=== PATIENT | female | born 1935 | race Caucasian/White ===

== ENCOUNTER 2016-04-28 17:00 | Observation (INO) | payer MEDICARE, OTHER ==
[~2016-04-28] VITALS: Ht 167.6 cm; Wt 60.2 kg
[~2016-04-28 17:00] MED LIST: ANTIVERT 25MG25 MG PO; ASPIRIN 32325 MG/TAB PO; ASPIRIN 81M81 MG/TA2 PO; ASPIRIN E.C. 8181 MG PO; ATENOLOL50 MG PO; ATIVAN 0.50.5 MG/TAB PO; BENADRYL25 M2 PO; BILBERRY EXTRAC80 MG PO; CALCIUM + D 6001 TA1 PO; CATAPRES 0.1MG0.1 MG PO; CELEBREX 200MG200 MG PO; COLACE 100100 MG/CAP PO; CRESTOR 10MG10 MG PO; CRESTOR40 MG PO; FOLIC ACID 40400 MCG PO; GLUCOPHAGE850 MG/TA1 PO; GLUCOPHAGE850 MG/TAB PO; GLUCOSAMINE500 M2 PO; IMDUR 60MG60 MG/TAB PO; IRON325 M1 PO; LANTUS100 U/ML SC; LIPITOR 40MG TA40 MG PO; LISINOPRIL10 MG PO; LIVALO2 MG PO; LOPRESSOR 550 MG/TAB PO; LORTAB 5/500 501 TAB PO; LOVENOX 3030 MG/0.3 SQ; LOW DOSE ASPIRI81 MG PO; LUTEIN20 MG PO; MECLIZINE25 MG PO; METAMUCIL1 PDR PO; NAPROSYN500 MG PO; NEVANAC 3 ML3 ML OD; NEVANAC 3 ML3 ML OU; NITROSTAT0.4 MG/TAB SL; NORCO 325 MG-51 TAB PO; NOVOLOG 100U100 U/M1 SC; PHENERGAN 25 TA25 MG PO; PLAVIX 75MG TAB75 MG PO; PRINIVIL10 MG PO; SENOKOT8.6 MG PO; SENORMIN50 MG PO; TENORMIN 2525 MG/TAB PO; THERAGRAN1 TA1 PO; TOPROL XL 25MG25 MG PO; TOPROL XL 50MG50 MG PO; TYLENOL EXTRA500 M1 PO; ULTRAM 50MG TAB50 MG PO; VICODIN 5/5001 UDTAB PO; VITAMIN C500 MG PO; VITAMIN D31000 IU PO; ZESTRIL 20MG TA20 MG PO; ZOFRAN 4MG T4 MG/TAB PO; [UNRECOGNIZED DRUG - OTHER] PO
[2016-04-28] MEDS ORDERED: GLUCOPHAGE850 MG/TAB PO (17:32)
[2016-04-28] MEDS ORDERED: ZESTRIL 20MG TA20 MG PO (17:33)
[2016-04-28] MEDS ORDERED: LOPRESSOR 550 MG/TAB PO (17:34)
[2016-04-28] MEDS ORDERED: LIPITOR 80MG80 MG PO (17:34)
[2016-04-28] MEDS ORDERED: NORCO 325 MG-51 TAB PO (17:36)
[2016-04-28 17:47] LABS: BASO % 0.4 % (0.0-2.0); EOS # 0.2 (0.0-0.7); EOS % 2.7 % (0-4.0); GRAN # 4.6 (1.4-6.5); LYMPH # 1.7 (1.2-3.4); LYMPH % 23.7 % (20.0-51.0); MEAN CELL VOLUME 88 fl (80.0-100.0); MEAN CORPUSCULAR HGB CONC 34 g/dl (33.0-37.0); MEAN PLATELET VOLUME 10.1 fl (7.4-10.4); MONO # 0.6 (0.1-0.6); MONO % 7.8 % (1.7-9.3); PLATELET COUNT 182 K/mm3 (130-400); REDCELL DISTRIBUTION WIDTH-CV 13.6 % (11.5-14.5); WHITE BLOOD COUNT 7.1 K/mm3 (4.8-10.8)
[2016-04-28 17:48] LABS: HEMATOCRIT 34.4 % (37.0-47.0); HEMOGLOBIN 11.6 g/dl (12.5-16.0); MEAN CORPUSCULAR HEMOGLOBIN 30 pg (27.0-31.0)
[2016-04-28 17:59] LABS: ADJUSTED CALCIUM 9.1 mg/dL (8.4-10.2); ALANINE AMINOTRANSFERASE 37 U/L (9-52); ALBUMIN 4.3 gm/dL (3.5-5.0); ALKALINE PHOSPHATASE 49 U/L (50-136); ANION GAP 12 mmol/L (7-16); BILIRUBIN,TOTAL 0.5 mg/dL (0.0-1.0); BLOOD UREA NITROGEN 14 mg/dL (7-17); CALCIUM 9.3 mg/dL (8.4-10.2); CARBON DIOXIDE 27 mmol/L (22-30); CHLORIDE 94 mmol/L (98-107); CREATININE, serum 0.73 mg/dL (0.52-1.25); GLUCOSE 145 mg/dL (74-106); LIPASE 236 U/L (23-300); SODIUM 133 mmol/L (137-145); TOTAL PROTEIN 6.8 gm/dL (6.4-8.2)
[2016-04-28 18:10] LABS: B-TYPE NATRIURETIC PEPTIDE 549 pg/mL (0-450)
[2016-04-28 18:11] LABS: TROPONIN-I < 0.012 ng/mL (0.000-0.034)
[2016-04-28 21:10] VITALS: BP 155/62; PULSE 69; TEMP 97.6
[2016-04-29 00:12] VITALS: BP 150/60; PULSE 76; TEMP 97.9
[2016-04-29 04:25] VITALS: BP 105/45; PULSE 74; TEMP 98.3
[2016-04-29 07:25] VITALS: BP 135/58; PULSE 66; TEMP 98.5
[2016-04-29 08:33] LABS: TROPONIN-I < 0.012 ng/mL (0.000-0.034)
[2016-04-29 08:41] LABS: CHOLESTEROL 151 mg/dL (120-200); HDL CHOLESTEROL 45 mg/dL; LDL CHOLESTEROL 80 mg/dL; TRIGLYCERIDE 132 mg/dL
[2016-04-29 12:10] VITALS: BP 133/59; PULSE 58; TEMP 98.7
[2016-04-29] MEDS ORDERED: NORVASC 5MG5 MG/TAB PO (15:18)
== END 2016-04-29 15:55 | disposition home or self-care (01) ==
LOC: COL.ER 17:00 → MEDICAL 18:59
PROVIDERS: Emergency Medicine
DX: I16.0 Hypertensive urgency (principal); R07.9 Chest pain, unspecified; I10 Essential (primary) hypertension; R51 Headache; I25.10 Atherosclerotic heart disease of native coronary artery without angina pectoris; Z95.1 Presence of aortocoronary bypass graft; E11.40 Type 2 diabetes mellitus with diabetic neuropathy, unspecified; Z79.84 Long term (current) use of oral hypoglycemic drugs
CPT/HCPCS: G0378; J0360

== ENCOUNTER → 2016-11-09 | Outpatient (REF) ==
[~2016-11-09] MED LIST changes: +LIPITOR 80MG80 MG PO; +NORVASC 5MG5 MG/TAB PO
== END ==
LOC: ZLAB.WCH 10:39
DX: Z01.89 Encounter for other specified special examinations (principal)

== ENCOUNTER 2017-07-06 17:22 | Emergency (ER) | payer MEDICARE, OTHER ==
[~2017-07-06] VITALS: Ht 167.6 cm; Wt 55.5 kg
[2017-07-06 17:30] VITALS: TEMP 98.2
[2017-07-06 18:07] LABS: BASO # 0.1 (0.0-0.2); BASO % 0.7 % (0.0-2.0); EOS # 0.1 (0.0-0.7); EOS % 2.1 % (0-4.0); GRAN # 4.1 (1.4-6.5); GRAN % 61.9 % (42.2-75.2); HEMATOCRIT 35.4 % (37.0-47.0); HEMOGLOBIN 12.3 g/dl (12.5-16.0); LYMPH # 1.7 (1.2-3.4); LYMPH % 25.8 % (20.0-51.0); MEAN CELL VOLUME 85 fl (80.0-100.0); MEAN CORPUSCULAR HEMOGLOBIN 29 pg (27.0-31.0); MEAN CORPUSCULAR HGB CONC 35 g/dl (33.0-37.0); MEAN PLATELET VOLUME 9.4 fl (7.4-10.4); MONO # 0.6 (0.1-0.6); MONO % 9.4 % (1.7-9.3); PLATELET COUNT 237 K/mm3 (130-400); RED BLOOD COUNT 4.18 M/mm3 (4.10-5.30); REDCELL DISTRIBUTION WIDTH-CV 15.1 % (11.5-14.5)
[2017-07-06 18:11] LABS: PROTHROMBIN TIME 11.1 SECONDS (9.7-12.8)
[2017-07-06 18:14] LABS: PARTIAL THROMBOPLASTIN TIME 30.3 SECONDS (26.0-37.0)
[2017-07-06 18:20] LABS: ALANINE AMINOTRANSFERASE 34 U/L (9-52); ALBUMIN 4.4 gm/dL (3.5-5.0); ALKALINE PHOSPHATASE 50 U/L (50-136); ANION GAP 13 mmol/L (7-16); AST,SGOT 28 U/L (15-37); BILIRUBIN,TOTAL 0.4 mg/dL (0.0-1.0); BLOOD UREA NITROGEN 13 mg/dL (7-17); CALCIUM 10.1 mg/dL (8.4-10.2); CARBON DIOXIDE 28 mmol/L (22-30); CREATININE, serum 0.64 mg/dL (0.52-1.25); GLUCOSE 123 mg/dL (74-106); POTASSIUM 3.6 mmol/L (3.4-5.0); SODIUM 130 mmol/L (137-145); TOTAL PROTEIN 7.4 gm/dL (6.4-8.2)
[2017-07-06 18:25] LABS: CHLORIDE 89 mmol/L (98-107)
[2017-07-06 18:36] LABS: TROPONIN-I < 0.012 ng/mL (0.000-0.034)
[2017-07-06] MEDS ORDERED: CRESTOR20 MG PO (18:41)
[2017-07-06] MEDS ORDERED: TESSALON P100 MG/CAP PO (18:43)
[2017-07-06 19:03] VITALS: BP 128/71; PULSE 75
== END 2017-07-06 19:13 | disposition home or self-care (01) ==
LOC: COL.ER 17:22
PROVIDERS: Family Medicine
DX: I10 Essential (primary) hypertension (principal); E11.9 Type 2 diabetes mellitus without complications; M54.5 Low back pain; Z79.82 Long term (current) use of aspirin; Z79.84 Long term (current) use of oral hypoglycemic drugs; Z79.02 Long term (current) use of antithrombotics/antiplatelets

== ENCOUNTER → 2017-07-12 | Outpatient (REF) ==
[~2017-07-12] MED LIST changes: +CRESTOR20 MG PO; +TESSALON P100 MG/CAP PO
== END ==
LOC: ZLAB.WCH 14:33
DX: Z01.89 Encounter for other specified special examinations (principal)

== ENCOUNTER 2017-08-29 02:14 | Emergency (ER) | payer MEDICARE, OTHER ==
[~2017-08-29] VITALS: Ht 167.6 cm; Wt 55.9 kg
[2017-08-29 02:21] VITALS: TEMP 97.1
[2017-08-29 02:50] LABS: BASO % 0.7 % (0.0-2.0); EOS # 0.2 (0.0-0.7); GRAN # 3.5 (1.4-6.5); GRAN % 59.2 % (42.2-75.2); HEMOGLOBIN 10.2 g/dl (12.5-16.0); LYMPH # 1.2 (1.2-3.4); LYMPH % 20.7 % (20.0-51.0); MEAN CELL VOLUME 90 fl (80.0-100.0); MEAN CORPUSCULAR HEMOGLOBIN 31 pg (27.0-31.0); MEAN CORPUSCULAR HGB CONC 34 g/dl (33.0-37.0); MEAN PLATELET VOLUME 9.5 fl (7.4-10.4); MONO # 0.9 (0.1-0.6); MONO % 14.6 % (1.7-9.3); PLATELET COUNT 181 K/mm3 (130-400); RED BLOOD COUNT 3.34 M/mm3 (4.10-5.30); REDCELL DISTRIBUTION WIDTH-CV 14.9 % (11.5-14.5)
[2017-08-29 02:51] LABS: HEMATOCRIT 29.9 % (37.0-47.0)
[2017-08-29 02:55] LABS: ALANINE AMINOTRANSFERASE 33 U/L (9-52); ALBUMIN 3.7 gm/dL (3.5-5.0); ALKALINE PHOSPHATASE 46 U/L (50-136); ANION GAP 13 mmol/L (7-16); AST,SGOT 27 U/L (15-37); BILIRUBIN,TOTAL 0.3 mg/dL (0.0-1.0); BLOOD UREA NITROGEN 16 mg/dL (7-17); CALCIUM 8.9 mg/dL (8.4-10.2); CARBON DIOXIDE 24 mmol/L (22-30); CHLORIDE 95 mmol/L (98-107); CREATININE, serum 0.73 mg/dL (0.52-1.25); GLUCOSE 164 mg/dL (74-106); POTASSIUM 4.1 mmol/L (3.4-5.0); SODIUM 133 mmol/L (137-145); TOTAL PROTEIN 6.1 gm/dL (6.4-8.2)
[2017-08-29 03:01] LABS: PROTHROMBIN TIME 10.9 SECONDS (9.7-12.8)
[2017-08-29 03:03] LABS: PARTIAL THROMBOPLASTIN TIME 31.8 SECONDS (26.0-37.0)
[2017-08-29] MEDS ORDERED: GLUCOPHAGE500 MG/TAB PO (03:03)
[2017-08-29] MEDS ORDERED: PERCOCET 325 MG1 TA2 PO (03:04)
[2017-08-29] MEDS ORDERED: PRILOSEC 20MG20 MG PO (03:05)
[2017-08-29 03:08] LABS: TROPONIN-I < 0.012 ng/mL (0.000-0.034)
[2017-08-29 04:55] VITALS: BP 128/77; PULSE 74
== END 2017-08-29 04:55 | disposition home or self-care (01) ==
LOC: COL.ER 02:14
PROVIDERS: Family Medicine
DX: R07.89 Other chest pain (principal); I10 Essential (primary) hypertension; Z98.890 Other specified postprocedural states; Z79.02 Long term (current) use of antithrombotics/antiplatelets; Z79.82 Long term (current) use of aspirin
CPT/HCPCS: J7030

== ENCOUNTER 2017-09-01 16:38 | Emergency (ER) | payer MEDICARE, OTHER ==
[~2017-09-01] VITALS: Ht 167.6 cm; Wt 54.5 kg
[~2017-09-01 16:38] MED LIST changes: +GLUCOPHAGE500 MG/TAB PO; +PERCOCET 325 MG1 TA2 PO; +PRILOSEC 20MG20 MG PO
[2017-09-01 16:39] VITALS: TEMP 98.5
[2017-09-01 17:01] LABS: BASO % 0.4 % (0.0-2.0); EOS # 0.2 (0.0-0.7); EOS % 1.5 % (0-4.0); GRAN # 7.7 (1.4-6.5); GRAN % 71.8 % (42.2-75.2); LYMPH # 2.1 (1.2-3.4); LYMPH % 19.3 % (20.0-51.0); MEAN CELL VOLUME 88 fl (80.0-100.0); MEAN CORPUSCULAR HEMOGLOBIN 30 pg (27.0-31.0); MEAN CORPUSCULAR HGB CONC 34 g/dl (33.0-37.0); MEAN PLATELET VOLUME 9.4 fl (7.4-10.4); MONO # 0.7 (0.1-0.6); MONO % 6.6 % (1.7-9.3); PLATELET COUNT 231 K/mm3 (130-400); RED BLOOD COUNT 3.97 M/mm3 (4.10-5.30); REDCELL DISTRIBUTION WIDTH-CV 14.3 % (11.5-14.5)
[2017-09-01 17:04] LABS: HEMATOCRIT 34.9 % (37.0-47.0)
[2017-09-01 17:06] LABS: PROTHROMBIN TIME 11.1 SECONDS (9.7-12.8)
[2017-09-01 17:18] LABS: ALANINE AMINOTRANSFERASE 35 U/L (9-52); ALBUMIN 4.2 gm/dL (3.5-5.0); ALKALINE PHOSPHATASE 58 U/L (50-136); ANION GAP 17 mmol/L (7-16); AST,SGOT 29 U/L (15-37); BILIRUBIN,TOTAL 0.5 mg/dL (0.0-1.0); BLOOD UREA NITROGEN 19 mg/dL (7-17); CALCIUM 9.8 mg/dL (8.4-10.2); CARBON DIOXIDE 22 mmol/L (22-30); CREATININE, serum 0.67 mg/dL (0.52-1.25); GLUCOSE 130 mg/dL (74-106); POTASSIUM 3.6 mmol/L (3.4-5.0); SODIUM 126 mmol/L (137-145); TOTAL PROTEIN 7.2 gm/dL (6.4-8.2)
[2017-09-01 17:21] LABS: CHLORIDE 87 mmol/L (98-107)
[2017-09-01 17:31] LABS: TROPONIN-I < 0.012 ng/mL (0.000-0.034)
[2017-09-01 17:51] LABS: COLLECTION METHOD CLEAN CATCH
[2017-09-01 18:00] LABS: PH 6 (5-8); SQUAMOUS EPITHELIAL 0-2 /hpf; URINE APPEARANCE Clear; URINE BACTERIA None Seen /hpf; URINE BILIRUBIN Negative (NEGATIVE); URINE BLOOD Negative (NEGATIVE); URINE COLOR Straw; URINE GLUCOSE Negative (NEGATIVE); URINE KETONE Negative (NEGATIVE); URINE LEUKOCYTE ESTERASE Negative (NEGATIVE); URINE NITRATE Negative (NEGATIVE); URINE PROTEIN(semi-quant) Negative (NEGATIVE); URINE RBC 0-2 /hpf; URINE UROBILINOGEN Negative (NEGATIVE)
[2017-09-01 18:56] LABS: BASO # 0.1 (0.0-0.2); BASO % 0.5 % (0.0-2.0); EOS # 0.2 (0.0-0.7); EOS % 1.8 % (0-4.0); GRAN # 6.8 (1.4-6.5); GRAN % 66.2 % (42.2-75.2); HEMOGLOBIN 12.1 g/dl (12.5-16.0); LYMPH # 2.5 (1.2-3.4); MEAN CELL VOLUME 89 fl (80.0-100.0); MEAN CORPUSCULAR HEMOGLOBIN 31 pg (27.0-31.0); MEAN CORPUSCULAR HGB CONC 34 g/dl (33.0-37.0); MEAN PLATELET VOLUME 9.3 fl (7.4-10.4); MONO # 0.7 (0.1-0.6); MONO % 7.1 % (1.7-9.3); PLATELET COUNT 231 K/mm3 (130-400); RED BLOOD COUNT 3.94 M/mm3 (4.10-5.30); REDCELL DISTRIBUTION WIDTH-CV 14.2 % (11.5-14.5)
[2017-09-01 18:57] LABS: HEMATOCRIT 35.2 % (37.0-47.0)
[2017-09-01 19:08] LABS: CALCIUM 9.6 mg/dL (8.4-10.2); CREATININE, serum 0.57 mg/dL (0.52-1.25); POTASSIUM 3.8 mmol/L (3.4-5.0)
[2017-09-01 19:48] VITALS: BP 164/87; PULSE 78
== END 2017-09-01 20:00 | disposition home or self-care (01) ==
LOC: COL.ER 16:38
PROVIDERS: Emergency Medicine
DX: F11.23 Opioid dependence with withdrawal (principal); E87.1 Hypo-osmolality and hyponatremia; R00.2 Palpitations; Z79.82 Long term (current) use of aspirin; Z79.02 Long term (current) use of antithrombotics/antiplatelets; Z79.84 Long term (current) use of oral hypoglycemic drugs; Z98.890 Other specified postprocedural states
CPT/HCPCS: J7030

== ENCOUNTER 2018-03-22 21:32 | Emergency (ER) | payer MEDICARE, OTHER ==
[~2018-03-22] VITALS: Ht 167.6 cm; Wt 59.1 kg
[2018-03-22 21:41] VITALS: TEMP 97
[2018-03-22 21:50] LABS: BASO # 0.1 (0.0-0.2); BASO % 0.7 % (0.0-2.0); EOS # 0.2 (0.0-0.7); EOS % 3.2 % (0-4.0); GRAN # 4.3 (1.4-6.5); GRAN % 56.4 % (42.2-75.2); HEMATOCRIT 37.7 % (37.0-47.0); HEMOGLOBIN 12.7 g/dl (12.5-16.0); LYMPH # 2.2 (1.2-3.4); LYMPH % 29.3 % (20.0-51.0); MEAN CELL VOLUME 90 fl (80.0-100.0); MEAN CORPUSCULAR HEMOGLOBIN 30 pg (27.0-31.0); MEAN CORPUSCULAR HGB CONC 34 g/dl (33.0-37.0); MEAN PLATELET VOLUME 9.4 fl (7.4-10.4); MONO # 0.8 (0.1-0.6); MONO % 10.1 % (1.7-9.3); PLATELET COUNT 230 K/mm3 (130-400); RED BLOOD COUNT 4.18 M/mm3 (4.10-5.30); REDCELL DISTRIBUTION WIDTH-CV 13.3 % (11.5-14.5)
[2018-03-22 21:58] LABS: PROTHROMBIN TIME 11.1 SECONDS (9.7-12.8)
[2018-03-22 22:04] LABS: ALANINE AMINOTRANSFERASE 36 U/L (9-52); ALBUMIN 4.5 gm/dL (3.5-5.0); ALKALINE PHOSPHATASE 57 U/L (50-136); ANION GAP 8 mmol/L (7-16); AST,SGOT 33 U/L (15-37); BILIRUBIN,TOTAL 0.4 mg/dL (0.0-1.0); BLOOD UREA NITROGEN 19 mg/dL (7-17); CALCIUM 9.5 mg/dL (8.4-10.2); CARBON DIOXIDE 29 mmol/L (22-30); CHLORIDE 100 mmol/L (98-107); CREATININE, serum 0.76 mg/dL (0.52-1.25); GLUCOSE 155 mg/dL (74-106); POTASSIUM 3.8 mmol/L (3.4-5.0); SODIUM 136 mmol/L (137-145); TOTAL PROTEIN 7.2 gm/dL (6.4-8.2)
[2018-03-22 22:15] LABS: TROPONIN-I < 0.012 ng/mL (0.000-0.034)
[2018-03-22] MEDS ORDERED: ZESTRIL 10MG10 MG PO (22:38)
[2018-03-22] MEDS ORDERED: PLAVIX 75MG TAB75 MG PO (22:38)
[2018-03-22] MEDS ORDERED: LIPITOR 40MG TA40 MG PO (22:39)
[2018-03-23 01:13] VITALS: BP 143/70; PULSE 71
[2018-03-23] MEDS ORDERED: NORVASC 10MG10 MG PO (01:32)
== END 2018-03-23 01:40 | disposition home or self-care (01) ==
LOC: COL.ER 21:32
PROVIDERS: Emergency Medicine
DX: I10 Essential (primary) hypertension (principal); E11.9 Type 2 diabetes mellitus without complications; I25.10 Atherosclerotic heart disease of native coronary artery without angina pectoris; R07.89 Other chest pain; Z95.1 Presence of aortocoronary bypass graft; Z79.82 Long term (current) use of aspirin; Z79.84 Long term (current) use of oral hypoglycemic drugs; Z79.02 Long term (current) use of antithrombotics/antiplatelets; I25.2 Old myocardial infarction

== ENCOUNTER 2018-07-09 19:06 | Emergency (ER) | payer MEDICARE, OTHER ==
[~2018-07-09] VITALS: Ht 167.6 cm; Wt 65.9 kg
[~2018-07-09 19:06] MED LIST changes: +NORVASC 10MG10 MG PO; +ZESTRIL 10MG10 MG PO
[2018-07-09 19:08] VITALS: TEMP 98.1
[2018-07-09] MEDS ORDERED: ZESTRIL 10MG10 MG PO (19:32)
[2018-07-09] MEDS ORDERED: GLUCOTROL 5M5 MG/TAB PO (19:34)
[2018-07-09] MEDS ORDERED: CRESTOR20 MG PO (19:35)
[2018-07-09 19:47] LABS: BASO # 0.1 (0.0-0.2); BASO % 0.5 % (0.0-2.0); EOS # 0.2 (0.0-0.7); GRAN # 5.4 (1.4-6.5); HEMATOCRIT 39.2 % (37.0-47.0); HEMOGLOBIN 13.3 g/dl (12.5-16.0); LYMPH # 2.8 (1.2-3.4); LYMPH % 29.4 % (20.0-51.0); MEAN CELL VOLUME 88 fl (80.0-100.0); MEAN CORPUSCULAR HEMOGLOBIN 30 pg (27.0-31.0); MEAN CORPUSCULAR HGB CONC 34 g/dl (33.0-37.0); MEAN PLATELET VOLUME 9.8 fl (7.4-10.4); MONO # 0.9 (0.1-0.6); MONO % 9.8 % (1.7-9.3); PLATELET COUNT 223 K/mm3 (130-400); RED BLOOD COUNT 4.45 M/mm3 (4.10-5.30); REDCELL DISTRIBUTION WIDTH-CV 13.6 % (11.5-14.5)
[2018-07-09 19:53] LABS: ALANINE AMINOTRANSFERASE 20 U/L (9-52); ALKALINE PHOSPHATASE 65 U/L (50-136); ANION GAP 15 mmol/L (7-16); AST,SGOT 38 U/L (15-37); BILIRUBIN,TOTAL 0.5 mg/dL (0.0-1.0); BLOOD UREA NITROGEN 15 mg/dL (7-17); CALCIUM 9.9 mg/dL (8.4-10.2); CARBON DIOXIDE 25 mmol/L (22-30); GLUCOSE 149 mg/dL (74-106); POTASSIUM 3.8 mmol/L (3.4-5.0); SODIUM 128 mmol/L (137-145); TOTAL PROTEIN 8.1 gm/dL (6.4-8.2)
[2018-07-09 19:55] LABS: CHLORIDE 88 mmol/L (98-107)
[2018-07-09 20:05] LABS: TROPONIN-I < 0.012 ng/mL (0.000-0.035)
[2018-07-09 20:11] LABS: COLLECTION METHOD CLEAN CATCH
[2018-07-09 20:16] LABS: PH 7 (5-8); SQUAMOUS EPITHELIAL None Seen /hpf; URINE APPEARANCE Clear; URINE BACTERIA None Seen /hpf; URINE BILIRUBIN Negative (NEGATIVE); URINE BLOOD Negative (NEGATIVE); URINE COLOR Straw; URINE GLUCOSE Negative (NEGATIVE); URINE KETONE Negative (NEGATIVE); URINE LEUKOCYTE ESTERASE Negative (NEGATIVE); URINE NITRATE Negative (NEGATIVE); URINE PROTEIN(semi-quant) Negative (NEGATIVE); URINE RBC None Seen /hpf; URINE UROBILINOGEN Negative (NEGATIVE)
[2018-07-09] MEDS ORDERED: ANTIVERT 25MG25 MG PO (22:00)
[2018-07-09 22:04] VITALS: BP 163/82; PULSE 68
== END 2018-07-09 22:05 | disposition home or self-care (01) ==
LOC: COL.ER 19:06
PROVIDERS: Emergency Medicine
DX: R42 Dizziness and giddiness (principal); E87.1 Hypo-osmolality and hyponatremia; I10 Essential (primary) hypertension; I25.10 Atherosclerotic heart disease of native coronary artery without angina pectoris; Z95.5 Presence of coronary angioplasty implant and graft; Z79.82 Long term (current) use of aspirin; Z79.84 Long term (current) use of oral hypoglycemic drugs; Z79.02 Long term (current) use of antithrombotics/antiplatelets